=== PATIENT | male | born 1975 | race African-American/Black ===

== ENCOUNTER 2017-12-07 10:28 | Emergency (ER) | payer OTHER ==
[~2017-12-07] VITALS: Ht 180.3 cm; Wt 77.2 kg
[~2017-12-07 10:28] MED LIST: DOXYCYCLINE 10100 MG PO; MAXITROL EYE DRO5 ML OP; PREDNISONE 20 M20 MG PO; PRILOSEC 20 MG20 MG PO
[2017-12-07 11:23] LABS: ABSOLUTE LYMPHOCYTES 1.7 thou/uL (0.8-5.3); ABSOLUTE MONOCYTES 0.5 thou/uL (0.0-1.2); ABSOLUTE NEUTROPHILS 3.3 thou/uL (1.6-8.1); BASOPHILS 0.4 %; EOSINOPHILS 0.6 %; HEMATOCRIT 50.8 % (42.0-52.0); HEMOGLOBIN 16.7 gm/dL (14.0-18.0); LYMPHOCYTES 31.1 %; MCHC 32.8 g/dL (28.0-37.0); MCV 88.2 fL (80.0-100.0); MONOCYTES 9.1 %; MPV 9.7 fl. (7.2-11.1); NUCLEATED RBCS 0 /100WBC; PLATELET COUNT* 170 thou/uL (150-400); POLYS 58.8 %; RBC 5.76 mil/uL (4.50-6.00); RDW-CV 13.5 % (10.5-14.5); WBC 5.6 thou/uL (4.0-11.0)
[2017-12-07 11:38] LABS: CALCIUM 8.9 mg/dL (8.5-10.1); POTASSIUM 3.6 mmol/L (3.5-5.1)
[2017-12-07 11:43] LABS: ALBUMIN 3.7 g/dL (3.4-5.0); TOTAL BILIRUBIN 0.8 mg/dL (<0.1-1.0); TOTAL PROTEIN 7.2 g/dL (6.4-8.2)
[2017-12-07 13:29] LABS: URINE BILIRUBIN NEGATIVE (Negative); URINE BLOOD NEGATIVE (Negative); URINE CLARITY CLEAR; URINE COLOR YELLOW; URINE GLUCOSE-RANDOM NEGATIVE (Negative); URINE KETONES NEGATIVE (Negative); URINE LEUKOCYTES NEGATIVE (Negative); URINE NITRITE NEGATIVE (Negative); URINE PROTEIN NEGATIVE (Negative); URINE SPECIFIC GRAVITY <= 1.005 (1.005-1.030)
[2017-12-07 14:14] VITALS: BP 144/103
== END 2017-12-07 14:15 | disposition home or self-care (01) ==
LOC: M.ERS 10:28
PROVIDERS: Physician Assistant Surgical
DX: R10.84 Generalized abdominal pain (principal); R10.13 Epigastric pain; R11.2 Nausea with vomiting, unspecified; R63.0 Anorexia; F17.210 Nicotine dependence, cigarettes, uncomplicated

== ENCOUNTER 2019-09-10 14:17 | Emergency (ER) | payer OTHER ==
[~2019-09-10] VITALS: Ht 180.3 cm; Wt 72.6 kg
[2019-09-10 15:05] LABS: URINE BILIRUBIN NEGATIVE (Negative); URINE BLOOD NEGATIVE (Negative); URINE CLARITY CLEAR; URINE COLOR STRAW; URINE GLUCOSE-RANDOM NEGATIVE (Negative); URINE KETONES NEGATIVE (Negative); URINE LEUKOCYTES-REFLEX NEGATIVE (Negative); URINE NITRITE-REFLEX NEGATIVE (Negative); URINE PROTEIN NEGATIVE (Negative); URINE SPECIFIC GRAVITY <= 1.005 (1.005-1.030); URINE UROBILINOGEN 0.2 E.U./dl (0.2-1.0)
[2019-09-10 15:15] LABS: ABSOLUTE EOSINOPHILS 0.1 thou/uL (0.0-0.7); ABSOLUTE LYMPHOCYTES 2.2 thou/uL (0.8-5.3); ABSOLUTE MONOCYTES 0.6 thou/uL (0.0-1.2); BASOPHILS 0.7 %; EOSINOPHILS 1.6 %; HEMATOCRIT 48.9 % (42.0-52.0); HEMOGLOBIN 16.5 gm/dL (14.0-18.0); LYMPHOCYTES 45.1 %; MCH 29.8 pg (26.0-34.0); MCHC 33.7 g/dL (28.0-37.0); MCV 88.2 fL (80.0-100.0); MONOCYTES 11.4 %; MPV 8.9 fl. (7.2-11.1); NUCLEATED RBCS 0 /100WBC; PLATELET COUNT* 191 thou/uL (150-400); POLYS 41.2 %; RBC 5.54 mil/uL (4.50-6.00); RDW-CV 14.7 % (10.5-14.5); WBC 4.9 thou/uL (4.0-11.0)
[2019-09-10 15:23] LABS: CALCIUM 8.5 mg/dL (8.5-10.1); CREATININE 0.9 mg/dL (0.6-1.3)
[2019-09-10 15:27] LABS: TOTAL BILIRUBIN 0.7 mg/dL (<0.1-1.0); TOTAL PROTEIN 7.6 g/dL (6.4-8.2)
[2019-09-10] MEDS ORDERED: LOPERAMIDE 2 MG2 M1 PO (15:59)
[2019-09-10 16:48] VITALS: BP 155/101
== END 2019-09-10 16:49 | disposition home or self-care (01) ==
LOC: M.ERS 14:17
PROVIDERS: Physician Assistant
DX: R19.7 Diarrhea, unspecified (principal); R50.9 Fever, unspecified; Z20.828 Contact with and (suspected) exposure to other viral communicable diseases; F17.210 Nicotine dependence, cigarettes, uncomplicated

== ENCOUNTER 2019-12-07 15:32 | Inpatient (IN) | payer OTHER ==
[~2019-12-07] VITALS: Ht 180.3 cm; Wt 88.0 kg
[~2019-12-07 15:32] MED LIST changes: +LOPERAMIDE 2 MG2 M1 PO
[2019-12-07 15:34] VITALS: BP 178/99
[2019-12-07 16:02] LABS: ABSOLUTE EOSINOPHILS 0.1 thou/uL (0.0-0.7); ABSOLUTE LYMPHOCYTES 2.1 thou/uL (0.8-5.3); ABSOLUTE MONOCYTES 0.7 thou/uL (0.0-1.2); ABSOLUTE NEUTROPHILS 2.5 thou/uL (1.6-8.1); BASOPHILS 0.7 %; EOSINOPHILS 1.1 %; HEMATOCRIT 49.4 % (42.0-52.0); HEMOGLOBIN 16.6 gm/dL (14.0-18.0); LYMPHOCYTES 39.3 %; MCH 29.5 pg (26.0-34.0); MCHC 33.7 g/dL (28.0-37.0); MCV 87.5 fL (80.0-100.0); MONOCYTES 12.7 %; NUCLEATED RBCS 0 /100WBC; PLATELET COUNT* 153 thou/uL (150-400); POLYS 46.2 %; RBC 5.64 mil/uL (4.50-6.00); RDW-CV 14.1 % (10.5-14.5); WBC 5.3 thou/uL (4.0-11.0)
[2019-12-07 16:14] LABS: CREATININE 1.1 mg/dL (0.6-1.3); POTASSIUM 3.4 mmol/L (3.5-5.1)
[2019-12-07 16:18] LABS: ALBUMIN 4.2 g/dL (3.4-5.0); TOTAL BILIRUBIN 1.5 mg/dL (<0.1-1.0); TOTAL PROTEIN 7.9 g/dL (6.4-8.2)
[2019-12-07 20:23] VITALS: BP 148/99
[2019-12-07 20:23] LABS: URINE BILIRUBIN NEGATIVE (Negative); URINE BLOOD NEGATIVE (Negative); URINE CLARITY CLEAR; URINE COLOR YELLOW; URINE GLUCOSE-RANDOM NEGATIVE (Negative); URINE KETONES 2+ (Negative); URINE LEUKOCYTES-REFLEX NEGATIVE (Negative); URINE NITRITE-REFLEX NEGATIVE (Negative); URINE PROTEIN TRACE (Negative); URINE SPECIFIC GRAVITY 1.015 (1.005-1.030); URINE UROBILINOGEN 0.2 E.U./dl (0.2-1.0)
[2019-12-07 20:31] LABS: AMP/METHAMP POSITIVE (Negative); BARBITURATES Negative (Negative); BENZODIAZEPINES Negative (Negative); COCAINE Negative (Negative); METHADONE Negative (Negative); OPIATES Negative (Negative); PCP Negative (Negative); THC POSITIVE (Negative)
[2019-12-07 21:00] VITALS: BP 136/83
[2019-12-07 22:24] LABS: CALCIUM 8.3 mg/dL (8.5-10.1); MAGNESIUM 2.5 mg/dL (1.8-2.4); PHOSPHORUS* 2.9 mg/dL (2.5-4.9)
[2019-12-07 22:26] LABS: PROTIME 9.9 Seconds (9.20-11.50)
[2019-12-08] VITALS: BP 136/84
[2019-12-08 04:10] VITALS: BP 122/85
[2019-12-08 07:51] VITALS: BP 132/92
--- NOTE | 2019-12-08 12:14 | EKG ---
[place] [address] ELECTROCARDIOGRAM REPORT Name: ESPERANZA ZURITA Room: [address] ADM IN M.R.#: [id number] Admission: 12/07/19 Attend Phys: Prudence Nunez Discharge: Date of : 79 Date of Service: 12/07/19 1555 Report #: [id number] THIS REPORT FOR: //name// 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 [facility]: DAGO : 1975 Requested By: Davin Cantor Order Number: [id number] MD: Kieran Boyle Measurements Intervals [place] Rate: 96 P: 54 HI: 120 QRS: 24 QRSD: 95 T: 55 QT: 367 QTc: 464 Interpretive Statements Sinus rhythm Left atrial enlargement Probable anteroseptal infarct, acute Compared to ECG 05/30/2012 15:58:13 Atrial abnormality now present Myocardial infarct finding now present Right bundle-branch block no longer present Electronically Signed On 12-08-2019 12:14:10 CDT by Kieran Boyle [email or web address] <ELECTRONICALLY SIGNED> By: Sukhwinder Boyle MD, FACC 12/08/19 1214 1555 1555 Sukhwinder Boyle MD, FAC /EPI
[2019-12-08 15:27] VITALS: BP 136/55
[2019-12-08 16:00] VITALS: BP 129/86
[2019-12-08 20:10] VITALS: BP 142/84
[2019-12-09] VITALS (7 sets, daily range): BP systolic 127–149; BP diastolic 89–109
[2019-12-09 04:22] LABS: CALCIUM 8.2 mg/dL (8.5-10.1); CREATININE 0.9 mg/dL (0.6-1.3); MAGNESIUM 2.3 mg/dL (1.8-2.4); PHOSPHORUS* 2.1 mg/dL (2.5-4.9); POTASSIUM 3.8 mmol/L (3.5-5.1)
[2019-12-09] MEDS ORDERED: PROTONIX40 M2 PO (11:29)
--- NOTE | 2019-12-09 16:33 | EXE ---
[place] [address] STRESS ECHOCARDIOGRAM Name: ESPERANZA ZURITA Leni Room: [address] IN M.R.#: [id number] Admission: 12/07/19 Attend Phys: Prudence Nunez Discharge: Date of : [birth year] Date of Service: 12/09/19 1633 Report #: [id number] THIS REPORT FOR: cc: FAM - No family physician/PCP FAM - No family physician/PCP Michael Warren MD [facility] ~ APPROVED REPORT Study performed: 12/09/2019 14:07:18 Exam: Dobutamine Stress Echo Indication: Chest pain , Dyspnea Patient Location: In-Patient Stress Nurse: Urvashi Mercedes RN Room #: 212 Supervising Physician: Anjel Hartley MD Ht: 5 ft 10 in HR: 71 bpm BP: 152/99 mmHg Medical History Cardiac Risk Factors: Tobacco History (Former), HTN, FHX of CAD Procedure The patient underwent a Pharmacological Stress Test using Dobutamine. Blood pressure, heart rate, and EKG were monitored. An Echocardiogram was performed by animal laboratory technician in four stages in quad fashion. At peak stress, four selected images were obtained and placed side by side with resting images for comparison. Stress Test Details Stress Test: Pharmacological Stress Test using Dobutamine. Reason for pharmacologic stress test: physical limitation. HR Resting HR: 71 bpm Max Heart Rate (APMHR): 178 bpm Max HR Achieved: 158 bpm Target HR (85% APMHR): 151 bpm % of APMHR: 88 Recovery HR: 104 bpm HR response to stress: Normal HR response to stress BP Resting BP: 152/99 [place] [address] STRESS ECHOCARDIOGRAM Name: ESPERANZA ZURITA Room: [address]#: [id number] Admission: 12/07/19 Attend Phys: Prudence Nunez Discharge: Date of : 79 Date of Service: 12/09/19 1633 Report #: [id number] Max BP: 226/117 mmHg Recovery BP: 152/120 mmHg BP response to stress: Abnormal hypertensive response to stress. ECG Resting ECG: Sinus Rhythm Stress ECG: Sinus Tachycardia ST Change: None Arrhythmia: None Recovery ECG: Sinus Rhythm Recovery ST Change: None Recovery Arrhythmia: None Clinical Reason for Termination: Completed protocol The patient tolerated dobutamine infusion without significant cardiac symptoms. Stress ECG Conclusion The baseline twelve-lead EKG shows sinus rhythm without significant ST segment or T wave abnormality. EKGs obtained during and post dobutamine infusion show sinus rhythm and sinus tachycardia with no significant ST segment or T wave changes when compared to baseline. There were no stress-induced arrhythmias. Pre-Stress Echo The resting Echocardiogram showed normal left ventricular contractility with an estimated Ejection Fraction of about 50-55%. The resting echocardiogram demonstrated normal wall motion in all wall segments. Post-Stress Echo The stress Echocardiogram showed normal left ventricular contractility with an estimated Ejection Fraction of about 65-70%. Compared to rest, there were no stress-induced wall motion abnormalities. Conclusion Clinical Response: Non-ischemic Stress ECG Response: Non-ischemic Stress Echo Images: [place] [address] STRESS ECHOCARDIOGRAM Name: PARMINDERESPERANZA L Room: [address]#: [id number] Admission: 12/07/19 Attend Phys: Prudence Nunez Discharge: Date of : 79 Date of Service: 12/09/191632 Report #: [id number] Other Information Study Quality: Good <ELECTRONICALLY SIGNED> By: Michael Warren MD, FACC 12/09/191632 32 32 Michael Warren MD, FACC /INF
--- NOTE | 2019-12-09 17:50 | EKG ---
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 : 1975 Requested By: Davin Cantor Order Number: [id number] MD: Michael Warren Measurements Intervals [place] Rate: 99 P: 55 MN: 122 QRS: 22 QRSD: 98 T: 48 QT: 360 QTc: 462 Interpretive Statements Sinus rhythm Left atrial enlargement RSR' in V1 or V2, right VCD or RVH ST elevation, consider anterior injury Compared to ECG 12/07/2019 15:55:12 Right ventricular hypertrophy now present RSR' in V1 or V2 now present ST (T wave) deviation now present Myocardial infarct finding still present Electronically Signed On 12-09-2019 17:50:36 CDT by Michael Warren [email or web address] <ELECTRONICALLY SIGNED> By: Michael Warren MD, FACC 12/09/19 1750 1556 1556 Michael Warren MD, FACC /EPI
[2019-12-10 00:33] VITALS: BP 135/93
[2019-12-10 04:37] VITALS: BP 131/86
[2019-12-10 07:05] LABS: ABSOLUTE EOSINOPHILS 0.1 thou/uL (0.0-0.7); ABSOLUTE LYMPHOCYTES 1.4 thou/uL (0.8-5.3); ABSOLUTE MONOCYTES 0.5 thou/uL (0.0-1.2); ABSOLUTE NEUTROPHILS 1.9 thou/uL (1.6-8.1); BASOPHILS 0.5 %; HEMATOCRIT 42.5 % (42.0-52.0); MCH 29.4 pg (26.0-34.0); MCHC 32.4 g/dL (28.0-37.0); MCV 90.6 fL (80.0-100.0); MONOCYTES 12.5 %; MPV 9.7 fl. (7.2-11.1); NUCLEATED RBCS 0 /100WBC; PLATELET COUNT* 129 thou/uL (150-400); RBC 4.69 mil/uL (4.50-6.00); RDW-CV 13.9 % (10.5-14.5); WBC 3.9 thou/uL (4.0-11.0)
[2019-12-10 07:09] LABS: HEMOGLOBIN 13.8 gm/dL (14.0-18.0)
[2019-12-10 07:11] LABS: ALBUMIN 3.1 g/dL (3.4-5.0); CALCIUM 8.1 mg/dL (8.5-10.1); CREATININE 0.9 mg/dL (0.6-1.3); POTASSIUM 3.8 mmol/L (3.5-5.1); TOTAL BILIRUBIN 0.4 mg/dL (<0.1-1.0); TOTAL PROTEIN 6.2 g/dL (6.4-8.2)
[2019-12-10 08:25] VITALS: BP 131/91
[2019-12-10 09:50] VITALS: BP 131/91
[2019-12-10] MEDS ORDERED: B-1100 MG PO (10:27)
[2019-12-10] MEDS ORDERED: FOLIC ACID1 MG PO (10:27)
== END 2019-12-10 11:18 | disposition home or self-care (01) | DRG 392 ==
LOC: M.ERS 15:32 → M.2W 18:23 → M.TBA-ER 18:23 → M.2W 19:51
PROVIDERS: Emergency Medicine Emergency Medical Services; Internal Medicine; ADMIT Internal Medicine; ATTEND Internal Medicine
DX: K21.9 Gastro-esophageal reflux disease without esophagitis (principal); F10.239 Alcohol dependence with withdrawal, unspecified; I20.9 Angina pectoris, unspecified; F17.210 Nicotine dependence, cigarettes, uncomplicated; K29.70 Gastritis, unspecified, without bleeding; F19.10 Other psychoactive substance abuse, uncomplicated; F41.9 Anxiety disorder, unspecified; Z20.828 Contact with and (suspected) exposure to other viral communicable diseases; Z79.899 Other long term (current) drug therapy

== ENCOUNTER 2020-02-25 13:37 | Emergency (ER) | payer OTHER ==
[~2020-02-25] VITALS: Ht 180.3 cm; Wt 72.6 kg
[~2020-02-25 13:37] MED LIST changes: +B-1100 MG PO; +FOLIC ACID1 MG PO; +PROTONIX40 M2 PO
[2020-02-25 14:38] LABS: ABSOLUTE BASOPHILS 0.1 thou/uL (0.0-0.2); ABSOLUTE LYMPHOCYTES 1.7 thou/uL (0.8-5.3); ABSOLUTE MONOCYTES 0.5 thou/uL (0.0-1.2); ABSOLUTE NEUTROPHILS 4.9 thou/uL (1.6-8.1); BASOPHILS 0.8 %; EOSINOPHILS 0.2 %; HEMOGLOBIN 14.9 gm/dL (14.0-18.0); LYMPHOCYTES 23.4 %; MCH 29.2 pg (26.0-34.0); MCHC 33.2 g/dL (28.0-37.0); MONOCYTES 7.2 %; MPV 8.2 fl. (7.2-11.1); NUCLEATED RBCS 0 /100WBC; PLATELET COUNT* 193 thou/uL (150-400); POLYS 68.4 %; RBC 5.11 mil/uL (4.50-6.00); WBC 7.1 thou/uL (4.0-11.0)
[2020-02-25 14:46] LABS: CALCIUM 8.7 mg/dL (8.5-10.1); CREATININE 0.9 mg/dL (0.6-1.3); POTASSIUM 4.1 mmol/L (3.5-5.1)
[2020-02-25 14:51] LABS: ALBUMIN 3.6 g/dL (3.4-5.0); TOTAL BILIRUBIN 0.3 mg/dL (<0.1-1.0); TOTAL PROTEIN 6.8 g/dL (6.4-8.2)
[2020-02-25 15:00] VITALS: BP 173/110
--- NOTE | 2020-02-26 14:26 | EKG ---
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: : 1975 Requested By: Orestes Serna Order Number: [id number] MD: Anjel Hartley Measurements Intervals [place] Rate: 72 P: 42 MI: 112 QRS: -2 QRSD: 103 T: 46 QT: 395 QTc: 433 Interpretive Statements Sinus arrhythmia Borderline short MI interval Probable left atrial enlargement RSR' in V1 or V2, right VCD ST elevation suggests acute pericarditis Compared to ECG 12/07/2019 21 Sinus arrhythmia is noted High ST segment takeoff over the right precordium persists Electronically Signed On 02-26-2020 14:26:11 SCHOOL SPEECH LANGUAGE PATHOLOGIST by Anjel Hartley [email or web address] <ELECTRONICALLY SIGNED> By: Anjel Hartley MD, FACC 02/26/20 1426 1345 1345 Anjel Hartley MD, FAC /EPI
== END 2020-02-25 15:00 | disposition home or self-care (01) ==
LOC: M.ERS 13:37
PROVIDERS: Family Medicine
DX: R42 Dizziness and giddiness (principal); F17.210 Nicotine dependence, cigarettes, uncomplicated